=== PATIENT | female | born 1995 | race Caucasian/White ===

== ENCOUNTER 2020-05-09 11:34 | Outpatient (REF) | payer MEDICAID, SELFPAY ==
[2020-05-09 18:34] LABS: HCT 37.5 % (36.0-46.0); HGB 12.5 g/dL (11.2-15.7); MCH 30.1 pg (27.0-33.0); MCHC 33.3 % (32.0-36.0); MCV 90.4 fL (80-95); MPV 11.6 fL (8.0-11.0); Platelet Count 242 10^3/uL (130-400); RBC 4.15 10^6/uL (3.93-5.22); RDW 11.9 % (11.7-14.6); RDW-SD 39.6 fL; WBC 8.83 10^3/uL (4.4-10.8)
[2020-05-09 18:59] LABS: Anion Gap 8.7 mmol/L (3-11); BUN 13 mg/dL (7-18); CO2 28.3 mmol/L (21.0-32.0); CREATININE 0.63 mg/dL (0.55-1.02); Calcium 9.1 mg/dL (8.5-10.1); Chloride 103 mmol/L (98-107); Glucose 100 mg/dL (74-106); Potassium 3.7 mmol/L (3.5-5.1); Sodium 140 mmol/L (136-145); TSH (W/Ref FT4) 2.39 uIU/mL (0.36-3.74)
== END 2020-05-09 11:54 ==
LOC: NCHCN 11:34
PROVIDERS: Visit Provider Nurse Practitioner Family
DX: R42 Dizziness and giddiness (principal)
CPT/HCPCS: 80048; 85027; 84443

== ENCOUNTER 2023-09-19 20:05 | Emergency (ER) | payer MEDICAID, SELFPAY ==
[2023-09-19] VITALS (24 sets, daily range): BP systolic 104–164; BP diastolic 62–96; PULSE 83–135; RESP 11–27; TEMP 37.3; O2SAT 98–100
--- NOTE | 2023-09-19 20:00 | RT.EKG_ITS ---
APPROVED REPORT Exam: Resting ECG Reason for Exam: SOB Patient Location: E HR:114 bpm ECG Measurements Heart Rate 114 AXIS UT 137 P 60 QRSd 77 QRS -1 QT 336 T 21 QTc 462 Conclusion Sinus tachycardia...rate> 99
[2023-09-19 20:45] LABS: HCT 42.4 % (36.0-46.0); HGB 14.1 g/dL (11.2-15.7); MCH 28.8 pg (27.0-33.0); MCHC 33.3 % (32.0-36.0); MCV 87 fL (80-95); MPV 10.7 fL (8.0-11.0); Platelet Count 263 10^3/uL (130-400); RDW-SD 38.3 fL
[2023-09-19] MEDS: Lactated Ringers 1,000 ML 1000 ML IV (20:56)
--- NOTE | 2023-09-19 20:58 | ED.GENADUL_ITS ---
Discharge Plan Disposition Patient Disposition: Home Condition: Stable Discharge Details Clinical Impression: Palpitations, Chest pain Primary Care Provider: Unknown,Unknown ED Provider: Bonny Durant Home Meds and New Rx's Prescriptions: Continued sertraline 25 MG tablet 25 mg PO DAILY Patient Comments: PT TAKES 20 MG/DAY clotrimazole-betamethasone [Lotrisone] 45 GM cream 15 gm Topical BID Qty: 1 Hold Instructions: Pt Stopped/Never Started Rx Instructions: Please dispense 15 GM tube. Apply to affected area twice daily for 7 days polyethylene glycol 3350 [Miralax] 17 GM powder in packet 17 gm PO DAILY Hold Instructions: Pt Stopped/Never Started escitalopram oxalate [Lexapro] 10 mg tablet 10 mg PO DAILY Discharge Instructions Instructions: Chest Pain (ED), Heart Palpitations (ED) Additional Instructions: Your test today are reassuring, you will need a Holter monitor in the outpatient setting, please call your primary care physician and I will send this note over Stay away from caffeinated beverages, try to have at least 3 solid meals and drink regular fluids Please return earlier should you have new or worsening complaints You may also try taking some Maalox and see if it helps with any of your symptoms Referrals: SYL MARTINEZ [employer] [facility] [ NON-[facility] STAFF PHYSICIAN] - Discharge Data Discharge Date/Time-TO BE ENTERED AT DEPARTURE: 09/19/23 23:27 Medical Decision Making 20-year-old female, alert and oriented, sinus tachycardia noted, hypertensive 164/96 EKG without evidence of acute ischemia Will order D-dimer, diagnostic blood work, magnesium Lungs clear to auscultation bilaterally, cardiac rate rhythm regular, distal pulses intact, no calf swelling or tenderness appreciated ddimer negative for acute abnormality cxr per radiology interpretation and my review does not show acute abnormality pt will likely benefit from holter monitor, will refer back to pcp discharged home in NAD with stable vitals, return precautions reviewed and pt expressed understanding HPI General Date/Time Provider Initiated Documentation: 09/19/23 20:45 . HPI Narrative: This 28-year-old female presents with report of substernal chest pain, 6 out of 10 which was precipitated by palpitations. Denies any shortness of breath. [place] lightheaded when the episode began. Has been having these for a year but states in the past week they have been worse. Denies any early family history of cardiac disease . Denies tobacco abuse. Does consume alcohol, 1-2 drinks 3 times a week per patient. Denies any chance of . Was recently switched to Lexapro but does not feel as though this medication is contributing. Has a of anxiety. Denies prior history of Holter monitor. Denies any chance of . Denies exogenous hormones or history of pulmonary embolism. Denies any recent flights, surgeries, long drives. Related Data Home Medications Medication Instructions Recorded Confirmed clotrimazole-betamethasone 1 15 gm topical BID #1 tube 02/07/14 09/19/23 %-0.05 % topical cream (Lotrisone) sertraline 25 mg tablet 25 mg PO DAILY 02/07/14 09/19/23 polyethylene glycol 3350 17 gram 17 gm PO DAILY 01/12/16 09/19/23 oral powder packet (Miralax) escitalopram oxalate 10 mg tablet 10 mg PO DAILY 09/19/23 09/19/23 (Lexapro) Allergies Allergy/AdvReac Type Severity Reaction Status Date / Time No Known Drug Allergies Allergy Unverified 09/19/23 20:09 General Stated Complaint: Chest Pain HYUN: 2 PFSH All Active Problems (Updated 09/19/23 @ 23:18 by PAIGE Randall) Chest pain (Acute) Palpitations (Acute) Medical History (Updated 09/19/23 @ 23:18 by PAIGE Randall) Constipation Allergic rhinitis Depression Social History Smoking/Tobacco Use Status: Never Smoking risk assessment performed?: Yes Alcohol Intake: current Alcohol Intake frequency: a few times a month Drug use: Rarely Substance use type: marijuana Course Vital Signs Vital signs: Vital Signs Temperature 37.3 C 09/19/23 20:09 Pulse 135 H 09/19/23 20:09 Respiratory Rate 20 09/19/23 20:09 Blood Pressure 164/96 H 09/19/23 20:09 Pulse Oximetry 98 09/19/23 20:09 Temperature 37.3 C 09/19/23 20:09 Temperature Source Oral 09/19/23 20:09 Pulse 135 H 09/19/23 20:09 Respiratory Rate 20 09/19/23 20:09 Respiratory Effort Normal 09/19/23 20:29 Respiratory Depth Normal 09/19/23 20:29 Respiratory Pattern Normal 09/19/23 20:29 Blood Pressure 164/96 H 09/19/23 20:09 Pulse Oximetry 98 09/19/23 20:09 Pain Level 6 09/19/23 20:09 Lab/Test Results Lab/Test Results: Laboratory Tests Range/Units 09/19/23 20:30 WBC (4.4-10.8) 10^3/uL 7.70 RBC (3.93-5.22) 10^6/uL 4.90 Hgb (11.2-15.7) g/dL 14.1 Hct (36.0-46.0) % 42.4 MCV (80-95) fL 87 MCH (27.0-33.0) pg 28.8 MCHC (32.0-36.0) % 33.3 RDW (11.7-14.6) % 12.0 Plt Count (130-400) 10^3/uL 263 MPV (8.0-11.0) fL 10.7 POC- Test(urine) Negative
[2023-09-19 21:05] LABS: ALT 16 U/L (14-59); AST 16 U/L (15-37); Albumin 4.7 g/dL (3.4-5.0); Alkaline Phosphatase 65 U/L (46-116); Anion Gap 10.5 mmol/L (3-11); BUN 14 mg/dL (7-18); Bilirubin, Total 0.7 mg/dL (0.2-1.0); CO2 26.5 mmol/L (21.0-32.0); CREATININE 0.7 mg/dL (0.55-1.02); Calcium 9.5 mg/dL (8.5-10.1); Chloride 99 mmol/L (98-107); Estimated GFR 120.74 (mL/min/1.73m2); Glucose 100 mg/dL (74-106); Potassium 3.7 mmol/L (3.5-5.1); Sodium 136 mmol/L (136-145); Total Protein 8.8 g/dL (6.4-8.2)
[2023-09-19 21:07] LABS: Troponin I < 50 ng/L (<or=60)
[2023-09-19 21:23] LABS: D-Dimer 194 ng/mlFEU (<500)
[2023-09-19 21:26] LABS: Magnesium 2.2 mg/dL (1.8-2.4); TSH (W/Ref FT4) 1.05 uIU/mL (0.36-3.74)
--- NOTE | 2023-09-19 22:00 | DI.RAD_ITS ---
Exam(s) XR CHEST 2V PA LATERAL EXAM: XR CHEST 2V PA LATERAL CLINICAL HISTORY: chest pain TECHNIQUE: 2D digital imaging was performed. COMPARISON: No exams were available for comparison FINDINGS: HEART: Normal size. Aorta: Not dilated. PULMONARY VASCULATURE: Normal. LUNGS: Clear. PLEURAL SPACE: No pleural effusion or pneumothorax. BONE:Unremarkable for age. Soft tissues: Unremarkable. IMPRESSION: No acute abnormality. DATA REPOSITORY: RADIATION DOSE DELIVERED:
--- NOTE | 2023-09-19 23:10 | DI.[facility]_ITS ---
PROCEDURE INFORMATION: Exam: XR Chest Exam date and time: 09/19/2023 10:41 PM Age: 28 years old Clinical indication: Other: Chest pain TECHNIQUE: Imaging protocol: Radiologic exam of the chest. Views: 2 views. COMPARISON: No relevant prior studies available. FINDINGS: Lungs: Unremarkable. No consolidation. Pleural spaces: Unremarkable. No pleural effusion. No pneumothorax. Heart/Mediastinum: Unremarkable. No cardiomegaly. Bones/joints: Unremarkable. IMPRESSION: No acute findings. Dictated and Authenticated by: Fermin Resendiz MD. Ordering:ZO Draper MD
== END 2023-09-19 23:27 | disposition home or self-care (01) ==
PROVIDERS: Emergency Provider Physician Assistant
DX: R07.9 Chest pain, unspecified (principal); R00.2 Palpitations; R00.1 Bradycardia, unspecified
CPT/HCPCS: 36415; 80053; 81025; 85027; 93005; 96360; 99283; 71046; 83735; 84443; 84484; 85379; 93010

== ENCOUNTER 2024-04-14 16:38 | Outpatient (REF) | payer MEDICAID, SELFPAY ==
--- NOTE | 2024-04-14 15:10 | PAPFT_PTH ---
PATIENT: Nae Bowen LOC: [facility] U#:[id number] AGE/SX: 28/F ROOM: RE04/14/[address]: Barb Orozco NP : 1995 BED: DIS: 04/14/2024 SPEC #: [id number] RECD: 04/14/24 17:28 STATUS: YINKA YUN #: [id number] TJ: 04/14/24 15:[address]: Barb Orozco NP DEPT: [facility] Cytology RECD BY: Bonny Anthony ENTERED: 04/14/24 17:28 SP TYPE: PAPFT OT DR: Unknown,Unknown Tissues: 1 - CX/ENDOCX FOR PAP SMEARS Procedures: PAP THIN PREP/[facility] Screening Comments: [id number]
== END 2024-04-14 16:39 | disposition home or self-care (01) ==
LOC: LBN 16:38
PROVIDERS: Visit Provider Nurse Practitioner Women's Health
DX: Z12.4 Encounter for screening for malignant neoplasm of cervix (principal)
CPT/HCPCS: 88142

== ENCOUNTER 2025-04-07 19:07 | Outpatient (CLI) | payer MEDICAID, SELFPAY ==
--- NOTE | 2025-04-07 19:35 | DI.RAD_ITS ---
Exam(s) XR LUMBAR SPINE COMPLETE EXAM: XR LUMBAR SPINE COMPLETE CLINICAL HISTORY: Low back pain, unspecified ICD-10: M54.50 G57.11. TECHNIQUE: 2D digital imaging was performed of the lumbar spine. Five images were obtained. AP, lateral, right oblique, left oblique and L5-S1 spot views were obtained. COMPARISON: No exams were available for comparison FINDINGS: BONES: No fracture or destructive lesion. Vertebral bodies are unremarkable. No facet hypertrophy identified. DISKS: Intervertebral disc spaces are maintained. ALIGNMENT: Lumbar spinal alignment is within normal limits. No spondylolysis or spondylolisthesis. SOFT TISSUE: Normal. IMPRESSION: 1. Unremarkable radiographs of the lumbar spine. 2. The preliminary [facility] report was reviewed. DATA REPOSITORY: RADIATION DOSE DELIVERED:
--- NOTE | 2025-04-07 20:26 | DI.VRAD_ITS ---
PROCEDURE INFORMATION: Exam: XR Lumbosacral Spine Exam date and time: 04/07/2025 7:26 PM Age: 29 years old Clinical indication: Low back pain TECHNIQUE: Imaging protocol: Radiologic exam of the lumbosacral spine. Views: 4 or 5 views. COMPARISON: No relevant prior studies available. FINDINGS: Bones/joints: Normal. No acute fracture. Normal alignment. Soft tissues: Unremarkable. IMPRESSION: Unremarkable exam. Dictated and Authenticated by: Jackeline Guevara MD. Orderin Ibeth Pimentel MD
== END 2025-04-07 19:27 ==
PROVIDERS: Visit Provider Physician Assistant Medical
DX: M54.50 Low back pain, unspecified (principal); G57.11 Meralgia paresthetica, right lower limb
CPT/HCPCS: 72110